=== PATIENT | male | born 1985 | race Two or more races ===

== ENCOUNTER 2024-05-17 16:47 | Emergency (ER) | payer SELFPAY ==
[2024-05-17] VITALS (9 sets, daily range): BP systolic 112–136; BP diastolic 67–95; PULSE 84–100; RESP 13–25; TEMP 36.8–36.9; O2SAT 91–97; BMI 34.3
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
--- NOTE | 2024-05-17 17:16 | XR_ITS ---
Examination: Forearm, right, 2 views. Technique: Forearm, AP, lateral 2 views Date and time of exam: 517.7 hours Indications: Acute severely comminuted fractures distal radial shaft and distal radial metaphysis Fractures of the navicular No elbow fracture Impression: Acute severely comminuted fractures distal radius Nondisplaced fractures navicular
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
[2024-05-17] MEDS: KETOROLAC INJ 60 MG/2 ML VIAL 30 MG IM (17:28)
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
[2024-05-17 19:07] LABS: Basophils # (Auto) 0.1 Thou/mm3 (0.0-0.2); Basophils % (Auto) 0 % (0-2.5); Eosinophils # (Auto) 0.1 Thou/mm3 (0.0-0.5); Eosinophils % (Auto) 0 % (0-10); Hematocrit 47.5 % (41.0-53.0); Hemoglobin 16.5 g/dL (13.5-16.0); Immature Granulocytes % (Auto) 1 % (0-0); Immature Granulocytes Auto 0.08 Thou/mm3 (0.00-0.00); Lymphocytes # (Auto) 1.4 Thou/mm3 (1.0-4.8); Lymphocytes % (Auto) 9 % (10-50); Mean Corpuscular HGB Conc 34.7 g/dl (31.0-37.0); Mean Corpuscular Hemoglobin 29.6 pg (25.0-35.0); Mean Corpuscular Volume 85 fL (80-100); Monocytes # (Auto) 0.7 Thou/mm3 (0.0-0.8); Monocytes % (Auto) 4 % (0-12); Neutrophils # (Auto) 13.8 Thou/mm3 (1.8-7.7); Neutrophils % (Auto) 86 % (37-80); Nucleated Red Blood Cell % 0 /100 WBC (0); Platelet Count 278 Thou/mm3 (140-440); RDW Standard Deviation 43.7 fL (35.1-43.9); Red Blood Count 5.57 Miln/mm3 (4.50-5.90); White Blood Count 16.1 Thou/mm3 (3.8-10.6)
[2024-05-17 19:20] LABS: Alanine Aminotransferase 62 U/L (10-49); Albumin, Serum 4.6 gm/dL (3.5-5.0); Albumin/Globulin Ratio 1.4 (1.2-2.2); Alcohol, Blood Medical 276.9 mg/dL (0-10.0); Alkaline Phosphatase 93 U/L (46-116); Anion Gap 13 (7-16); Aspartate Amino Transferase 40 U/L (0-34); BUN/Creatinine Ratio 9 Ratio (12-20); Bilirubin,Total 0.3 mg/dL (0.3-1.2); Blood Urea Nitrogen 8 mg/dL (9-23); Calcium 9.3 mg/dL (8.3-10.6); Calcium (Corrected) 9.3 mg/dL (8.5-10.1); Carbon Dioxide 22.4 mMol/L (20.0-31.0); Chloride 106 mMol/L (98-107); Creatinine (Component) 0.9 mg/dL (0.6-1.3); Estimated Creatinine Clearance 141.3 mL/min (>60); Globulin 3.2 gm/dL (2.3-3.5); Glucose 119 mg/dL (74-106); Osmolality,Calculated 280 (275-295); Potassium 3.9 mMol/L (3.4-5.1); Sodium 141 mMol/L (136-145); Total Protein 7.8 gm/dL (5.7-8.2); eGFR > 60 See Note
[2024-05-17] MEDS: MORPHINE SULF INJ 10 MG/ML VIAL 4 MG IVP (19:22)
[2024-05-17] MEDS: ceFAZolin/D5W 1 GM IVPB 1 GM/50 ML BAG IV (19:23)
[2024-05-17] MEDS: ONDANSETRON INJ 2 MG/ML INJ 2 ML 4 MG IV (19:23)
[2024-05-17 19:24] LABS: Prothrombin Time 11.4 Seconds (9.0-12.2)
[2024-05-17] MEDS: DIPHTH,PERTUSS(ACELL),TET VAC 0.5 ML SYR IMi (19:32)
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
[2024-05-17] MEDS: MORPHINE SULF INJ 10 MG/ML VIAL 5 MG IVP ×2 (20:38→22:39)
--- NOTE | 2024-05-17 20:38 | PC.NURSE ---
PT WAS ACCEPTED TO [facility] BY DR. VUONG. THIS IS A ER:ER TRANSFER AND NUMBER FOR REPORT IS [phone]. MEREDITH WAS WHO I SPOKE WITH FOR ACCEPTING INFORMATION.
--- NOTE | 2024-05-17 22:49 | PC.NURSE ---
Report called to [facility] LESLIE Sanchez. Report given to philosophy specialist and pt transfered to [facility] ER.
--- NOTE | 2024-05-17 22:52 | PC.NURSE ---
Arm cleaned and dressing applied by solar energy technician.
== END 2024-05-17 22:38 | disposition short-term general hospital (02) ==
LOC: SERX 23:01
PROVIDERS: Emergency Provider Emergency Medicine
DX: S52.591A Other fractures of lower end of right radius, initial encounter for closed fracture (principal); V28.99XA Unspecified rider of other motorcycle injured in noncollision transport accident in traffic accident, initial encounter; M54.2 Cervicalgia; R51.9 Headache, unspecified; R07.9 Chest pain, unspecified; Z23 Encounter for immunization
CPT/HCPCS: 36415; 70450; 71045; 72125; 72170; 73070; 73090; 73110; 73130; 80053; 80307; 80320; 81001; 85025; 85610; 86850; 86900; 86901; 90471; 90715; 96365; 96372; 96375; 96376; 99291; J0689; J1885; J2270; J2405; G0480